=== PATIENT | female | born 1955 | race African-American/Black ===

== ENCOUNTER 2021-05-30 15:20 | Emergency (ER) | payer MEDICARE, MEDICAID ==
[~2021-05-30] VITALS: Ht 162.6 cm; Wt 70.0 kg
[2021-05-30 15:56] VITALS: BP 177/81
[2021-05-30] MEDS ORDERED: DEXAMETHASONE 10 MG/ML VIAL IV ONE (16:00)
[2021-05-30] MEDS ORDERED: DIPHENHYDRAMINE 50MG/ML VIAL IV ONE (16:00)
[2021-05-30] MEDS ORDERED: FAMOTIDINE 20MG/2ML VIAL IV ONE (16:00)
[2021-05-30 17:15] LABS: HEMATOCRIT. 27.1 % (36.0-48.0); HEMOGLOBIN. 9.3 g/dL (12.0-16.0); MEAN CORPUSCULAR HEMOGLOBIN 30.6 pg (28.0-32.0); MEAN CORPUSCULAR VOLUME 89.3 fL (81.0-99.0); MEAN PLATELET VOLUME 8.5 fl (7.4-10.4); PLATELET 156 x1000/uL (130-400); RED BLOOD CELL COUNT 3.03 mill/uL (4.2-5.4); RED CELL DISTRIBUTION WIDTH 15.8 % (11.6-14.6)
[2021-05-30 17:16] LABS: CHLORIDE 107 mEq/L (98-107)
[2021-05-30 17:49] LABS: CLARITY URINE CLEAR (CLEAR); COLOR URINE YELLOW (YELLOW); KETONES URINE NEGATIVE (NEGATIVE); LEUKOCYTE ESTERASE URINE 1+ (NEGATIVE); NITRITE URINE NEGATIVE (NEGATIVE); OCCULT BLOOD URINE NEGATIVE (NEGATIVE); PH URINE 6.5 (4.5-8.0); PROTEIN URINE NEGATIVE (NEGATIVE); SPECIFIC GRAVITY URINE 1.011 (1.005-1.030); UROBILINOGEN URINE 0.2 E.U./dL (0.2-1.0)
[2021-05-30 18:06] LABS: PLATELET ESTIMATE NORMAL
[2021-05-30] MEDS ORDERED: P50 PO (18:32)
== END 2021-05-30 19:11 | disposition home or self-care (01) ==
LOC: ER 15:20
DX: R22.0 Localized swelling, mass and lump, head (principal); I10 Essential (primary) hypertension; E03.9 Hypothyroidism, unspecified
CPT/HCPCS: 36415; 71045; 80053; 81003; 85025; 86850; 86900; 86901; 93005; 96374; 96375; 99285; J1100; J1200; J3490

== ENCOUNTER 2021-12-22 15:35 | Emergency (ER) | payer MEDICARE, MEDICAID ==
[~2021-12-22] VITALS: Ht 165.1 cm; Wt 77.0 kg
[~2021-12-22 15:35] MED LIST: P50 PO
[2021-12-22 15:42] VITALS: BP 173/80
== END 2021-12-22 19:30 | disposition left against medical advice (07) ==
LOC: ER 15:35
DX: Z53.21 Procedure and treatment not carried out due to patient leaving prior to being seen by health care provider (principal)

== ENCOUNTER 2022-01-19 16:40 | Emergency (ER) | payer MEDICARE, MEDICAID ==
[~2022-01-19] VITALS: Ht 170.2 cm; Wt 70.0 kg
[2022-01-19 16:44] VITALS: BP 160/90
[2022-01-19 21:19] LABS: CLARITY URINE CLEAR (CLEAR); COLOR URINE YELLOW (YELLOW); KETONES URINE NEGATIVE (NEGATIVE); LEUKOCYTE ESTERASE URINE NEGATIVE (NEGATIVE); NITRITE URINE NEGATIVE (NEGATIVE); OCCULT BLOOD URINE NEGATIVE (NEGATIVE); PH URINE 6.5 (4.5-8.0); PROTEIN URINE NEGATIVE (NEGATIVE); SPECIFIC GRAVITY URINE 1.009 (1.005-1.030); UROBILINOGEN URINE 0.2 E.U./dL (0.2-1.0)
[2022-01-19] MEDS ORDERED: POLY10DR EACHEYE (21:21)
[2022-01-19] MEDS ORDERED: AMOX1TAB16 MT (21:37)
== END 2022-01-19 21:40 | disposition home or self-care (01) ==
LOC: ER 16:40
DX: J32.9 Chronic sinusitis, unspecified (principal); H10.023 Other mucopurulent conjunctivitis, bilateral; H92.09 Otalgia, unspecified ear; I10 Essential (primary) hypertension; E03.9 Hypothyroidism, unspecified; M32.9 Systemic lupus erythematosus, unspecified
CPT/HCPCS: 81003; 99283

== ENCOUNTER 2022-04-08 14:38 | Emergency (ER) | payer MEDICARE ==
[~2022-04-08] VITALS: Ht 157.5 cm; Wt 65.0 kg
[~2022-04-08 14:38] MED LIST changes: +AMOX1TAB16 MT; +POLY10DR EACHEYE
[2022-04-08 14:47] VITALS: BP 115/86
[2022-04-08] MEDS ORDERED: P20 PO (17:58)
[2022-04-08] MEDS ORDERED: TETANUS, DIPHTHERIA, PERTUSSIS VAC/PF 0.5ML (>10YR OLD) IM ONE (18:15)
[2022-04-08] MEDS ORDERED: LIDOCAINE HCL 1% 20ML VIAL (Pyxis) INJ INFIL ONE (18:15)
== END 2022-04-08 18:09 | disposition home or self-care (01) ==
LOC: ER 14:38
DX: L23.9 Allergic contact dermatitis, unspecified cause (principal); I10 Essential (primary) hypertension; M32.9 Systemic lupus erythematosus, unspecified; Z79.899 Other long term (current) drug therapy
CPT/HCPCS: 99283

== ENCOUNTER 2022-04-18 13:17 | Emergency (ER) | payer MEDICARE, MEDICAID ==
[~2022-04-18] VITALS: Ht 157.5 cm; Wt 75.0 kg
[~2022-04-18 13:17] MED LIST changes: +P20 PO
[2022-04-18 13:22] VITALS: BP 136/71
[2022-04-18] MEDS ORDERED: DIPHENHYDRAMINE 25MG CAPSULE PO ONE (14:00)
[2022-04-18] MEDS ORDERED: DEXAMETHASONE 10 MG/ML VIAL IM ONE (14:00)
[2022-04-18] MEDS ORDERED: FAMOTIDINE 20MG TABLET PO ONE (14:00)
[2022-04-18] MEDS ORDERED: MAGNESIUM/ALUMINUM HYDROXIDE/SIMETHICONE 30ML UDC PO STA (14:01)
[2022-04-18 14:33] LABS: BASOPHILS % 0.6 % (0.0-2.0); EOSINOPHILS % 0.8 % (0.0-5.0); HEMATOCRIT. 30.5 % (36.0-48.0); HEMOGLOBIN. 10.2 g/dL (12.0-16.0); LYMPHOCYTES % 17.5 % (20.0-50.0); MEAN CORPUSCULAR HEMOGLOBIN 31.6 pg (28.0-32.0); MEAN CORPUSCULAR VOLUME 94.2 fL (81.0-99.0); MEAN PLATELET VOLUME 8.2 fl (7.4-10.4); MONOCYTES % 8.3 % (2.0-8.0); NEUTROPHILS % 72.8 % (40.0-76.0); PLATELET 207 x1000/uL (130-400); RED BLOOD CELL COUNT 3.24 mill/uL (4.2-5.4); RED CELL DISTRIBUTION WIDTH 15.5 % (11.6-14.6)
[2022-04-18 14:34] LABS: CHLORIDE 103 mEq/L (98-107)
[2022-04-18 14:37] LABS: PROTHROMBIN TIME 10.6 sec (9.6-11.0)
[2022-04-18 14:48] LABS: ETHANOL BLOOD < 10 mg/dL
[2022-04-18] MEDS ORDERED: DIPHENHYDRAMINE 25MG CAPSULE PO NR (17:15)
[2022-04-18] MEDS ORDERED: DEXAMETHASONE 10 MG/ML VIAL IM NR (17:15)
[2022-04-18] MEDS ORDERED: FAMOTIDINE 20MG TABLET PO NR (17:30)
[2022-04-18] MEDS ORDERED: MAGNESIUM/ALUMINUM HYDROXIDE/SIMETHICONE 30ML UDC PO NR (17:30)
[2022-04-18] MEDS ORDERED: EPIN0.3P3 IM (17:53)
[2022-04-18] MEDS ORDERED: HYDR453.3 TP (17:55)
[2022-04-18 18:15] LABS: CLARITY URINE CLEAR (CLEAR); COLOR URINE YELLOW (YELLOW); KETONES URINE NEGATIVE (NEGATIVE); LEUKOCYTE ESTERASE URINE NEGATIVE (NEGATIVE); NITRITE URINE NEGATIVE (NEGATIVE); OCCULT BLOOD URINE NEGATIVE (NEGATIVE); PH URINE 6.5 (4.5-8.0); PROTEIN URINE NEGATIVE (NEGATIVE); SPECIFIC GRAVITY URINE 1.012 (1.005-1.030); UROBILINOGEN URINE 0.2 E.U./dL (0.2-1.0)
== END 2022-04-18 18:23 | disposition home or self-care (01) ==
LOC: ER 13:21
DX: T78.40XA Allergy, unspecified, initial encounter (principal); X58.XXXA Exposure to other specified factors, initial encounter; D64.9 Anemia, unspecified; R94.31 Abnormal electrocardiogram [ECG] [EKG]; I10 Essential (primary) hypertension; M32.9 Systemic lupus erythematosus, unspecified
CPT/HCPCS: 36415; 71045; 80053; 80320; 81003; 83880; 84484; 85025; 85610; 86850; 86900; 86901; 93005; 96372; 99285; J1100; Q0163; G0480